=== PATIENT | female | born 2000 | race Caucasian/White ===

== ENCOUNTER 2024-10-05 23:38 | Emergency (ER) | payer MEDICAID ==
[~2024-10-05] VITALS: Ht 172.7 cm; Wt 58.0 kg
[2024-10-05 23:41] VITALS: BP 120/82; PULSE 86; RESP 16; TEMP 36.8; O2SAT 100
[2024-10-06] MEDS ORDERED: METOCLOPRAMIDE HCL 10MG TABLET PO ONE (01:15)
[2024-10-06] MEDS ORDERED: ACETAMINOPHEN 500MG TABLET PO ONE (01:15)
== END 2024-10-06 02:43 | disposition left against medical advice (07) ==
LOC: ER 23:38
DX: O20.9 Hemorrhage in early pregnancy, unspecified (principal); Z3A.01 Less than 8 weeks gestation of pregnancy
CPT/HCPCS: 99283; J8597